=== PATIENT | male | born 1950 | race Caucasian/White ===

== ENCOUNTER → 2019-03-03 | Outpatient (CLI) | payer OTHER | END | disposition home or self-care (01) | LOC: CFH 08:59 | PROVIDERS: ATTEND Nurse Practitioner | DX: J43.2 Centrilobular emphysema (principal); J47.9 Bronchiectasis, uncomplicated; J98.11 Atelectasis; I70.0 Atherosclerosis of aorta | CPT/HCPCS: 71250 ==